=== PATIENT | male | born 1950 | race Caucasian/White ===

== ENCOUNTER → 2017-11-09 | Outpatient (CLI) | payer OTHER | LOC: BHFA 08:30 | PROVIDERS: ATTEND Internal Medicine Cardiovascular Disease | DX: R94.39 Abnormal result of other cardiovascular function study (principal) | CPT/HCPCS: 78452; 93017; A9500; J2785 ==

== ENCOUNTER → 2017-11-19 | Outpatient (CLI) | payer OTHER | LOC: BHFA 13:30 | PROVIDERS: ATTEND Internal Medicine Cardiovascular Disease | DX: R07.9 Chest pain, unspecified (principal) ==

== ENCOUNTER → 2017-11-20 | Outpatient (CLI) | payer OTHER | LOC: BHFA 11:30 | PROVIDERS: ATTEND Internal Medicine Cardiovascular Disease | DX: I25.10 Atherosclerotic heart disease of native coronary artery without angina pectoris (principal) ==

== ENCOUNTER 2017-11-27 06:09 | Observation (INO) | payer OTHER ==
[2017-11-27] MEDS ORDERED: NS 1,000 ML IV ONE (06:15)
[2017-11-27] MEDS ORDERED: diphenhydrAMINE 25 MG CAP PO ONE (06:15)
[2017-11-27] MEDS ORDERED: FAMOTIDINE 20 MG TAB PO ONE (06:15)
[2017-11-27] MEDS ORDERED: ASPIRIN EC 325 MG TAB PO ONE (06:15)
[2017-11-27] MEDS ORDERED: DIAZEPAM 5 MG TAB PO ONE (06:15)
--- NOTE | 2017-11-27 06:30 | CPEKG ---
Heart Rate: 69 RR Interval: 870 P-R Interval: 152 QRSD Interval: 84 QT Interval: 380 QTC Interval: 407 P Tiger: 11 QRS Tiger: 33 T Wave Tiger: 68 EKG Severity - BORDERLINE ECG - EKG Impression: SINUS RHYTHM EKG Impression: BORDERLINE T WAVE ABNORMALITIES Electronically Signed By: Cory Pritchard 27-Nov-2017 07:16:20
--- NOTE | 2017-11-27 06:33 | PDHPUP ---
History & Physical Update H&P update statement: This history and physical update is based on an assessment of the patient which was completed after admission or registration (within 24 hours), but prior to the surgery/procedure. H&P update: H&P reviewed & patient examined, no change in patient's condition since H&P completed
--- NOTE | 2017-11-27 06:33 | PDPROPOC ---
Sedation Plan of Care Sedation Plan of Care: mental status noted, patient educated of risks, benefits , alternatives, patient can tolerate sedation ASA Classification: ASA 2 Planned drugs: fentanyl, midazolam Mallampati Score: Class 2 Mallampati Reference Image: Patient passed 3-3-2 rule?: Yes
[2017-11-27 06:47] LABS: PLATELET COUNT 165 10^3/uL (150-400)
[2017-11-27 06:55] LABS: INR 1.09 (0.83-1.16); PROTIME(PATIENT) 14.3 SEC (12.0-15.0)
[2017-11-27] MEDS ORDERED: CLOPIDOGREL BISULFATE 75 MG TAB PO ONE (07:00)
[2017-11-27] MEDS ORDERED: fentaNYL 100 MCG/2 ML INJ ONE ×2 (07:07→08:06)
[2017-11-27] MEDS ORDERED: LIDOCAINE 1% 300 MG/30 ML SDV ONE (07:07)
[2017-11-27] MEDS ORDERED: MIDAZOLAM 2 MG/2 ML VIAL ONE (07:07)
[2017-11-27] MEDS ORDERED: IOPAMIDOL (ISOVUE-370) 150 ML BTL IV ONE (07:08)
[2017-11-27] MEDS ORDERED: NITROGLYCERIN 1,500 MCG/15 ML VIAL MISC ONE (07:43)
[2017-11-27] MEDS ORDERED: BIVALIRUDIN 250 MG/5 ML VIAL IV ONE (07:43)
[2017-11-27] MEDS ORDERED: OXYCODONE/APAP 5/325 TAB PO PRN (08:20)
[2017-11-27] MEDS ORDERED: LORazepam 2 MG/ML INJ IVP PRN (08:20)
[2017-11-27] MEDS ORDERED: ATROPINE SULFATE 1 MG/10 ML SYR IVP PRN (08:20)
[2017-11-27] MEDS ORDERED: NITROGLYCERIN 0.4 MG BTL SL PRN (08:20)
[2017-11-27] MEDS ORDERED: ONDANSETRON 4 MG/2 ML VIAL IVP PRN (08:20)
[2017-11-27] MEDS ORDERED: TEMAZEPAM 15 MG CAP PO PRN (08:20)
[2017-11-27] MEDS ORDERED: HYDROCODONE/APAP 5/325 TAB PO PRN (08:20)
--- NOTE | 2017-11-27 11:00 | CPIP ---
[f rep st] INVASIVE CARDIAC PROCEDURE DATE OF PROCEDURE: 11/27/2017 INDICATION FOR PROCEDURE: Positive stress test. Unstable angina. Chest pain. PROCEDURE: 1. Nonselective right groin sheathogram. 2. Bilateral selective coronary angiography. 3. Left heart catheterization. 4. Left ventriculogram. 5. Percutaneous intervention of prox mid LAD utilizing Synergy 3.5 x 16 mm Synergy drug-eluting sten t. Briefly, this is a 67-year-old male with history of unstable anginal like symptoms. Patient underwen t stress testing which showed apical ischemia. Given this finding patient consented for left heart c atheterization. DESCRIPTION OF PROCEDURE: After informed consented, the patient was brought to [facility] where the right g roin was prepped and draped in sterile fashion lidocaine, a short 6-Mongolian sheath right co mmon femoral artery verified angiographically. The sheath was then upsized to a 25 cm sheath due to the excessive tortuosity of the iliac arteries over an Amplatz superstiff wire and a JR4 diagnostic c atheter. A JR4 catheter was advanced in the left coronary artery. Image of the left coronary artery revealed normal left main. Left circumflex artery was normal caliber, terminating to a marginal 1 a rtery. Distally, there was a ramus intermedius which appeared to be healthy and free of disease. Th e LAD had what appeared to be a high-grade 90% to 95% lesion in its proximal mid aspect just at the a fter takeoff of a small diagonal artery. Distally, the LAD appeared to be widely patent and wrapped around the apex. There was a medium size septal managed care nurse coming off the proximal LAD as well. Aft er imaging was obtained, the JL4 catheter was removed. The JR4 catheter was advanced to the right co ronary artery. Images of the right coronary artery revealed normal os prox mid distal RCA, RPD and R PLS appeared to be healthy and free of disease. After imaging was obtained the JR4 catheter was sherita rosalia. The pigtail catheter was advanced within the right ventricle left ventricle. LVEDP is 12 mmHg. Left ventriculogram in the OSORIO projection showed EF of 65% with no wall motion abnormali ties. There was no pull-back in between LV and aorta. Pigtail catheter was removed over a 3.5 wire. INTERVENTIONAL REPORT: Patient had been administered 600 mg of Plavix p.o. and started on Angiomax b olus and drip. An EBU 3.5-guide catheter was advanced to the left coronary artery. A Choice PT wire was placed down the LAD successfully. Predilatation commenced with 3.5 x 12 compliant balloon at 10 atmospheres. After this was performed the balloon was removed. Angiographic images were obtained w hich showed improved patency . We decided to proceed with stenting of this vessel with a 3 .5 x 16 Synergy drug-eluting stent. This was deployed successfully at 12 atmospheres. After deploym ent, angiography obtained which showed excellent patency of the stented area with no evidence of diss ection or perforation. There was verified in orthogonal views. The wire was removed. The guide cat heter was removed 3.5 wire. The right groin was closed with 6-Mongolian Angio-Seal. The pat ient tolerated the procedure well. No complications. IMPRESSION: 1. High-grade 90% to 95% mid LAD lesions treated successfully with Synergy 3.5 x 16 mm drug-eluting stent. 2. Essentially normal left circumflex artery, left main and right coronary artery. 3. Normal ejection fraction. PLAN: The patient will remain overnight. He will remain on aspirin and Plavix for at least 1 year's time. Risk factor modification including blood pressure and lipid control will be instituted as enmanuel brito /[id number]/MODL
[2017-11-27] MEDS: MULTIVITAMINS W-MINERALS 1 EACH TAB PO SCH (11:37)
[2017-11-27] MEDS: LISINOPRIL 10 MG TAB PO SCH (12:12)
[2017-11-27] MEDS: ASPIRIN 81 MG CHEWABLE TAB PO SCH (12:12)
--- NOTE | 2017-11-27 16:06 | CPEKG ---
Heart Rate: 53 RR Interval: 1132 P-R Interval: 164 QRSD Interval: 88 QT Interval: 424 QTC Interval: 399 P [place]: 27 QRS [place]: 29 T Wave [place]: 47 EKG Severity - ABNORMAL ECG - EKG Impression: SINUS RHYTHM EKG Impression: NONSPECIFIC T ABNORMALITIES, ANT-LAT LEADS Electronically Signed By: Cory Pritchard 28-Nov-2017 07:43:42
[2017-11-28 04:34] LABS: PLATELET COUNT 159 10^3/uL (150-400)
--- NOTE | 2017-11-28 07:05 | PDCARPN ---
Cardiology Progress Note Chief Complaint: CP Assessment/Plan: Assessment: s/p PCI to LAD for angina/+ stress test HTN Plan: 11/28/17 07:04 Doing well d/c home plavix/asa continue home meds patient has been intolerant of statins in the past Subjective: doing well Reviewed/Discussed With: multidisciplinary team Time Spent with Patient: greater than 25 minutes Time Spent with Patient: Greater than 25 minutes spent on this patients care, greater than 50% of time spent counseling, educating, and coordinating care regarding the above mentioned plan. Objective: Vital Signs (8 Hrs) Temp Pulse Resp BP Pulse Ox 11/28/17 04:13 36.9 C 62 17 139/86 H 96 11/27/17 23:07 36.6 C 69 17 130/83 H 96 Intake/Output (24 Hrs) 11/27/17 11/28/17 11/29/17 05:59 05:59 05:59 Intake Total 600 Output Total 1100 Balance -500 Intake: Oral (ml) 200 IV Intake (ml) 400 Output: Urine (ml) 1100 Toilet 1100 Other: Weight 90.7 kg Number of Voids Toilet 1 Result Diagrams: 11/28/17 03:37 11/28/17 03:37 - Physical Exam Constitutional: healthy appearing Eyes: PERRL Ears, Nose, Mouth, Throat: moist mucous membranes Cardiovascular: regular rate and rhythm Peripheral Pulses: 1+: femoral (R), femoral (L) Respiratory: clear to auscultate bilat Gastrointestinal: normoactive bowel sounds Genitourinary: no suprapubic tenderness Skin: no rashes Musculoskeletal: no muscular tenderness Neurologic: AAOx3 Psychiatric: cooperative ICD10 Worksheet Patient Problems: Problems Problem Status Onset CAD - Coronary arteriosclerosis Acute
[2017-11-28 07:15] VITALS: BP 149/84
--- NOTE | 2017-11-28 07:29 | GDS ---
[f rep st] DISCHARGE SUMMARY DISCHARGE DIAGNOSIS: Coronary artery disease. HOSPITAL COURSE: Briefly, this is a 67-year-old male with history of angina-like symptoms as an outp atient. Patient underwent stress test, which showed apical ischemia. Given these findings, patient underwent cardiac catheterization. Patient was found to have high-grade, 95% proximal mid LAD diseas e with no significant involvement of any other coronary vessels. Patient underwent successful single -vessel percutaneous intervention with SYNERGY 3.5 x 16 mm drug-eluting stent. Post procedure, the p attushar has done very well, was ambulating in the halls without problems. No chest pain, no shortness of breath postprocedure. Patient will be discharged home this morning with his home medications inc luding aspirin and Plavix as well as his home blood pressure medications. He has been intolerant to statins. Thus, this will not be started at this time. He will follow up in the office in 1 week's manny aceves. /[id number]/MODL
[2017-11-28] MEDS: ASPIRIN 81 MG CHEWABLE TAB PO SCH (08:41)
[2017-11-28] MEDS: LISINOPRIL 10 MG TAB PO SCH (08:42)
[2017-11-28] MEDS: MULTIVITAMINS W-MINERALS 1 EACH TAB PO SCH (08:42)
[2017-11-28] MEDS ORDERED: CLOPIDOGREL BISULFATE 75 MG TAB PO SCH (09:00)
--- NOTE | 2017-11-28 09:55 | ASMTLACE ---
LACE Length of stay for Answers: 1 day current admission Acuity / Level of Answers: No Care: Did the patient have an inpatient admission? Comorbidities - select Answers: Coronary Artery Disease all that apply # of Emergency department Answers: 0 visits in the last 6 months Score: 3 Date Signed: 11/28/2017 09:55 AM Electronically Signed By:Heena Vines RN
--- NOTE | 2017-11-28 10:06 | ASDISCHSUM ---
Discharge Information Plan Status:Home with No Needs Medically Cleared to Leave:11/28/2017 Discharge Date:11/28/2017 CM D/C Disposition:Home, Routine, Self-Care ADT D/C Disposition:Home, Routine, Self-Care Projected Discharge Date:11/28/2017 Transportation at D/C: Discharge Delay Reason: Follow-Up Date:11/28/2017 Discharge Slot: Final Diagnosis: Placement Information Patient Contact Information Contact Name:ORLY Relationship: Address:[address] Work Phone: [place] [facility] Phone: State/Zip Code:[place] [address] Email: Financial Information Financial Class:Medicare Primary Plan Desc:MEDICARE OUTPATIENT Primary Plan Number:[id number] Secondary Plan Desc:EZE [place] Secondary Plan Number:[id number] Assessment Information LACE LACE Length of stay for Answers: 1 day current admission Acuity / Level of Answers: No Care: Did the patient have an inpatient admission? Comorbidities - select Answers: Coronary Artery Disease all that apply # of Emergency department Answers: 0 visits in the last 6 months Score: 3 Date Signed: 11/28/2017 09:55 AM Electronically Signed By:Heena Vines RN Case Management Discharge Plan Note Case Management Discharge Discharge Order Complete? Answers: Yes Patient to Obtain Answers: Independently Medications Discharge Comments Notes: 11/28/2017 Case Management Note pt to d/c independent with follow up as directed. Date Signed: 11/28/2017 10:05 AM Electronically Signed By:Heena Vines RN Intervention Information
== END 2017-11-28 10:29 | disposition home or self-care (01) ==
LOC: FCATH 06:09 → F2W 08:21
PROVIDERS: ADMIT Internal Medicine Cardiovascular Disease; ATTEND Internal Medicine Cardiovascular Disease
PROC: 4A023N7 Measurement of Cardiac Sampling and Pressure, Left Heart, Percutaneous Approach (ICD-10-PCS; principal; 2017-11-27)
PROC: 027034Z Dilation of Coronary Artery, One Artery with Drug-eluting Intraluminal Device, Percutaneous Approach (ICD-10-PCS; principal; 2017-11-27)
PROC: B2111ZZ Fluoroscopy of Multiple Coronary Arteries using Low Osmolar Contrast (ICD-10-PCS; principal; 2017-11-27)
DX: I25.110 Atherosclerotic heart disease of native coronary artery with unstable angina pectoris (principal); E78.5 Hyperlipidemia, unspecified; I10 Essential (primary) hypertension; Z85.46 Personal history of malignant neoplasm of prostate
CPT/HCPCS: 92928; 93005; 93458; C1725; C1760; C1769; C1874; C1887; C9600; J0583; J1644; J2250; J3010; Q9967

== ENCOUNTER → 2017-12-05 | Outpatient (CLI) | payer OTHER | LOC: BHFA 13:30 | PROVIDERS: ATTEND Internal Medicine Cardiovascular Disease | DX: I10 Essential (primary) hypertension (principal); E78.5 Hyperlipidemia, unspecified ==

== ENCOUNTER → 2018-05-06 | Outpatient (CLI) | payer OTHER | LOC: BHFA 14:45 | PROVIDERS: ATTEND Internal Medicine Cardiovascular Disease | DX: I35.1 Nonrheumatic aortic (valve) insufficiency (principal) ==